=== PATIENT | male | born 1965 | race Caucasian/White ===

== ENCOUNTER 2018-08-31 11:02 | Emergency (ER) | payer SELFPAY ==
[2018-08-31] MEDS ORDERED: Lidocaine 1% 20 ML MDV INJECT ONE (11:23)
[2018-08-31] MEDS ORDERED: Lidocaine 1% 10 ML MDV ONE (11:30)
--- NOTE | 2018-08-31 11:32 | EDM.PDOC ---
ED HPI GENERAL MEDICAL PROBLEM - General Chief Complaint: General Stated Complaint: INFECTION IN SORE ON CHEST Time Seen by Provider: 08/31/18 11:08 Source of Information: Reports: Patient, RN Notes Reviewed History Limitations: Reports: No Limitations - History of Present Illness INITIAL COMMENTS - FREE TEXT/NARRATIVE: Patient is a 53 year old male who presents to the ED for the evaluation of an infected sore on his left chest. He states that this is been present for quite some time, although he did start to notice some redness spreading from it. He did try to pop it yesterday and did get some whitish/yellowish drainage from it. He denies any fever/chills, nausea/vomiting/diarrhea. The area is on his left upper chest, just above the nipple. The area is tender and reddened. - Related Data Allergies Allergy/AdvReac Type Severity Reaction Status Date / Time bee venom protein (honey bee) Allergy Hives Verified 08/31/18 11:11 Penicillins Allergy Hives Verified 08/31/18 11:11 Home Meds: Home Meds Aspirin [Halfprin] 81 mg PO DAILY 08/31/18 [History] Atenolol 50 mg PO DAILY 08/31/18 [History] Doxycycline [Vibramycin] 100 mg PO BID #28 tab 08/31/18 [Rx] Ramipril 5 mg PO DAILY 08/31/18 [History] Saxagliptin HCl [Onglyza] 5 mg PO DAILY 08/31/18 [History] metFORMIN [Glucophage] 500 mg PO DAILY 08/31/18 [History] Past Medical History HEENT History: Reports: Impaired Vision Cardiovascular History: Reports: Hypertension Endocrine/Metabolic History: Reports: Diabetes, Type II Social & Family History - Tobacco Use Smoking Status *Q: Never Smoker Second Hand Smoke Exposure: Yes - Caffeine Use Caffeine Use: Reports: Coffee - Recreational Drug Use Recreational Drug Use: No ED ROS GENERAL - Review of Systems Review Of Systems: See Below Constitutional: Denies: Fever, Chills HEENT: Reports: No Symptoms Respiratory: Reports: No Symptoms Cardiovascular: Reports: Chest Pain (over the area of infection) Endocrine: Reports: No Symptoms GI/Abdominal: Reports: No Symptoms : Reports: No Symptoms Musculoskeletal: Reports: No Symptoms Skin: Reports: Erythema, Lumps (upper left chest, this is tender and fluctuant in areas with some hardness) ED EXAM, GENERAL - Physical Exam Exam: See Below Exam Limited By: No Limitations General Appearance: Alert, WD/WN, No Apparent Distress Ears: Normal External Exam Nose: Normal Inspection Throat/Mouth: Normal Inspection, Normal Lips, Normal Teeth, Normal Gums, Normal Oropharynx, Normal Voice, No Airway Compromise Head: Atraumatic, Normocephalic Neck: Normal Inspection Respiratory/Chest: No Respiratory Distress, Lungs Clear, Normal Breath Sounds, No Accessory Muscle Use, Chest Non-Tender Cardiovascular: Normal Peripheral Pulses, Regular Rate, Rhythm, No Murmur GI/Abdominal: Normal Bowel Sounds, Soft, Non-Tender, No Distention, No Mass Extremities: Normal Inspection, Normal Capillary Refill Neurological: Alert, Oriented, Normal Cognition, No Motor/Sensory Deficits Psychiatric: Normal Affect, Normal Mood Skin Exam: Warm, Dry, Intact, Erythema (upper left chest over area of infection) , Increased Warmth (over area of infection of left chest, there is a tender lump with some fluctuance and hardness to middle portion.) ED GENERAL MEDICAL PROCEDURES - Laceration/Wound Repair Left Upper Chest Lac/wound length in cm: 2 Appearance: Other (surgical incision for cyst removal) Distal NVT: Neuro & Vascular Intact, No Tendon Injury Anesthetic Type: Local Local Anesthetic Volume: Other (12) Exploration/Debridement/Repair: Wound Explored, In a Bloodless Field, Explored to Base Closed with: Sutures Suture Size: 4-0 # of Sutures: 3 (wound loosely approximated to allow drainage) Suture Type: Prolene Sterile Dressing Applied: Nurse Tetanus Status Addressed: No Complications: No Progress/Comments: large amount of white/greyish thick matter was expressed from the wound. the cyst sack was removed, the wound was cleansed per nursing and bandaged with pressure bandage. Course - Vital Signs Last Recorded V/S: Last Vital Signs Temp 99 F 08/31/18 11:08 Pulse 93 08/31/18 11:08 Resp 18 08/31/18 11:08 BP 130/76 08/31/18 11:08 Pulse Ox 98 08/31/18 11:08 - Orders/Labs/Meds Orders: Active Orders 24 hr Category Date Time Status CULTURE WOUND [RM] Stat Lab 08/31/18 12:05 Received Meds: Medications Discontinued Medications Generic Name Dose Route Start Last Admin Trade Name Freq PRN Reason Stop Dose Admin Lidocaine HCl 20 ml 08/31/18 11:23 Xylocaine 1% INJECT 08/31/18 11:24 ONETIME ONE Lidocaine HCl Confirm 08/31/18 11:30 08/31/18 12:28 Xylocaine 1% Administered 08/31/18 11:31 Not Given Dose 20 ml .ROUTE .STK-MED ONE Lidocaine HCl 10 ml 08/31/18 12:27 Xylocaine 1% INJECT 08/31/18 12:28 ONETIME ONE - Re-Assessments/Exams Free Text/Narrative Re-Assessment/Exam: 08/31/18 11:48 Pt presents to the ED for the evaluation of a tender lump on his chest. I am suspicious that this may be an infected sebaceous cyst with surrounding cellulitis. I will drain this in the ED today and get him on some antibiotics. Departure - Departure Time of Disposition: 12:22 Disposition: Home, Self-Care 01 Condition: Fair Clinical Impression: Infected sebaceous cyst Cellulitis Qualifiers: Site of cellulitis: trunk Site of cellulitis of trunk: chest wall Qualified Code(s): L03.313 - Cellulitis of chest wall - Discharge Information *PRESCRIPTION DRUG MONITORING PROGRAM REVIEWED*: No *COPY OF PRESCRIPTION DRUG MONITORING REPORT IN PATIENT JERED: No Prescriptions: Doxycycline [Vibramycin] 100 mg PO BID #28 tab Instructions: Cellulitis, Adult, [id number] Referrals: PCP,None [Ordering Only Provider] - Forms: ED Department Discharge Additional Instructions: You have been evaluated in the ED for your infected cyst. Please take the antibiotics as prescribed for 14 days. This has been electronically sent to the [facility] pharmacy located near [facility], they are open only from 12-4pm today. The sutures will need to stay in for 7 days at least. The wound was loosely approximated to allow for drainage. Please change the bandages as needed to keep the wound clean. No vigorous scrubbing to the area. You may cleanse with soap and water. Please return to the ED if your symptoms should change or worsen. - My Orders Last 24 Hours: My Active Orders 08/31/18 12:05 CULTURE WOUND [RM] Stat - Assessment/Plan Last 24 Hours: My Active Orders 08/31/18 12:05 CULTURE WOUND [RM] Stat
[2018-08-31] MEDS ORDERED: Lidocaine 1% 10 ML MDV INJECT ONE (12:27)
== END 2018-08-31 12:37 | disposition home or self-care (01) ==
LOC: JD.ED 11:02
DX: L72.3 Sebaceous cyst (principal); L03.313 Cellulitis of chest wall; Z77.22 Contact with and (suspected) exposure to environmental tobacco smoke (acute) (chronic); I10 Essential (primary) hypertension; E11.9 Type 2 diabetes mellitus without complications; Z79.84 Long term (current) use of oral hypoglycemic drugs; Z79.82 Long term (current) use of aspirin
CPT/HCPCS: 10060; 11402; 87070; 87075; 87205; 99283; 99283-25